=== PATIENT | male | born 1985 | race Caucasian/White ===

== ENCOUNTER 2020-11-23 14:20 | Emergency (ER) | payer BC ==
[2020-11-23] MEDS ORDERED: Diphtheria,Pertussis(Acell),Tetanus Vaccine 0.5 ML Syringe IM ONE (15:08)
[2020-11-23] MEDS ORDERED: Lidocaine 1% with EPINEPHrine 1:100,000 10 ML MDV INJECT ONE (15:08)
--- NOTE | 2020-11-23 16:01 | EDM.PDOC ---
ED HPI GENERAL MEDICAL PROBLEM - General Chief Complaint: Laceration Stated Complaint: LT AND RT LEG LARGE THIGH LACS Time Seen by Provider: 11/23/20 14:49 Source of Information: Reports: Patient, RN Notes Reviewed History Limitations: Reports: No Limitations - History of Present Illness INITIAL COMMENTS - FREE TEXT/NARRATIVE: Patient is a 35-year-old male presenting to the emergency department with complaints of laceration to his left thigh. Reports that he was doing woodwork with a cork grinder when it fell off the table, hitting him in the leg. It also bumped his right ankle and caused abrasion there. Patient is unsure when his last tetanus vaccination was. Left Lower Leg Pain Score (Numeric/FACES): 8 Right Lower Leg Pain Score (Numeric/FACES): 2 - Related Data Allergies Allergy/AdvReac Type Severity Reaction Status Date / Time Dairy Products Allergy Severe Cannot Verified 11/23/20 14:50 Remember eggs Allergy Severe Cannot Uncoded 11/23/20 14:50 Remember Home Meds: Home Meds . [No Known Home Meds] 11/23/20 [History] Past Medical History - Past Health History Medical/Surgical History: Denies Medical/Surgical History Respiratory History: Reports: Asthma - Infectious Disease History Infectious Disease History: Reports: Chicken Pox - Past Surgical History HEENT Surgical History: Reports: Adenoidectomy, Myringotomy w Tube(s) Male Surgical History: Reports: Vasectomy Musculoskeletal Surgical History: Reports: Arthroscopic Knee Social & Family History - Tobacco Use Tobacco Use Status *Q: Current Every Day Tobacco User Years of Tobacco use: 21 Packs/Tins Daily: 1 - Caffeine Use Caffeine Use: Reports: Coffee, Soda, Tea - Recreational Drug Use Recreational Drug Use: No - Living Situation & Occupation Living situation: Reports: , with Family Occupation: Employed ED ROS GENERAL - Review of Systems Review Of Systems: Comprehensive ROS is negative, except as noted in HPI. ED EXAM, SKIN/RASH Exam: See Below Exam Limited By: No Limitations General Appearance: Alert, WD/WN, No Apparent Distress Respiratory/Chest: No Respiratory Distress, Lungs Clear, Normal Breath Sounds, No Accessory Muscle Use, Chest Non-Tender Cardiovascular: Normal Peripheral Pulses, Regular Rate, Rhythm, No Edema, No Gallop, No JVD, No Murmur, No Rub Extremities: Other (13 cm total (9 cm deep/gaping, 4 cm superficial abrasion) laceration to medial aspect of left thigh. No active bleeding.) Neurological: Alert, Oriented, CN II-XII Intact, Normal Cognition, Normal Gait, Normal Reflexes, No Motor/Sensory Deficits Psychiatric: Normal Affect, Normal Mood ED SKIN PROCEDURES - Laceration/Wound Repair Left Medial Thigh Appearance: Subcutaneous Anesthetic Type: Local Local Anesthesia - Lidocaine (Xylocaine): 1% with EPI Local Anesthetic Volume: 5cc Skin Prep: Chlorhexidine (Hibiciens), Providone-Iodine (Betadine), Saline, Sterile Drape Exploration/Debridement/Repair: Wound Explored, In a Bloodless Field, Explored to Base, Minimal Debridement, No Foreign Material Found Closed with: Sutures Lac/Wound length In cm: 13 (9 cm gaping, 4 cm superficial abrasion) Suture Size: 3-0 # of Sutures: 8 Suture Type: Nylon Sterile Dressing Applied: Nurse Tetanus Status Addressed: Yes Complications: No Course - Vital Signs Last Recorded V/S: Last Vital Signs Temp 97.8 F 11/23/20 16:47 Pulse 71 11/23/20 16:47 Resp 14 11/23/20 16:47 BP 124/89 11/23/20 16:47 Pulse Ox 97 11/23/20 16:47 - Orders/Labs/Meds Meds: Medications Discontinued Medications Generic Name Dose Route Start Last Admin Trade Name [place] PRN Reason Stop Dose Admin Diphtheria/Tetanus/Acell Pertussis 0.5 ml 11/23/20 15:08 11/23/20 15:16 Diphtheria,Pertussis(Acell),Tetanus Vaccine 0.5 Ml Syringe IM 11/23/20 15:09 0.5 ml .ONCE ONE Administration Lidocaine/Epinephrine 10 ml 11/23/20 15:08 11/23/20 15:16 Lidocaine 1% With Epinephrine 1:100,000 10 Ml Mdv INJECT 11/23/20 15:09 10 ml ONETIME ONE Administration Departure - Departure Time of Disposition: 16:00 Disposition: Home, Self-Care 01 Condition: Good Clinical Impression: Laceration - Discharge Information *PRESCRIPTION DRUG MONITORING PROGRAM REVIEWED*: No *COPY OF PRESCRIPTION DRUG MONITORING REPORT IN PATIENT GALE: No Instructions: Laceration Care, Adult Referrals: PCP,None [Primary Care Provider] - Forms: ED Department Discharge Additional Instructions: You were seen in the emergency department today for a laceration to your left th igh. The wound was cleansed and closed with 8 sutures. These should stay intact for 7-10 days. After that time they may be removed in the clinic by a nurse. You may call [phone] schedule a nurse visit. Keep the wound clean and dry. Wash with normal soap and water twice daily. Do not submerge the wound in water. Watch for signs of infection including increased redness, swelling, or purulent drainage. If these should occur, you should be seen either in the clinic or in the emergency department as antibiotic treatment may be needed. Return to the ER as needed. Sepsis Event Note (ED) - Evaluation Sepsis Screening Result: No Definite Risk
[2020-11-23 16:49] VITALS: BP 124/89; PULSE 71
== END 2020-11-23 16:21 | disposition home or self-care (01) ==
LOC: JD.ED 14:20
DX: S71.112A Laceration without foreign body, left thigh, initial encounter (principal); Z91.012 Allergy to eggs; Z91.011 Allergy to milk products; Z72.0 Tobacco use; Z23 Encounter for immunization; W20.8XXA Other cause of strike by thrown, projected or falling object, initial encounter; Y99.0 Civilian activity done for income or pay
CPT/HCPCS: 12005; 90471; 90715; 99282-25; 99283

== ENCOUNTER 2020-12-30 11:33 | Emergency (ER) | payer BC ==
[2020-12-30 11:41] VITALS: BP 146/95; PULSE 77
--- NOTE | 2020-12-30 12:29 | EDM.PDOC ---
ED HPI GENERAL MEDICAL PROBLEM - General Chief Complaint: Chest Pain Stated Complaint: CHEST PAIN Time Seen by Provider: 12/30/20 12:03 Source of Information: Reports: Patient, RN Notes Reviewed History Limitations: Reports: No Limitations - History of Present Illness INITIAL COMMENTS - FREE TEXT/NARRATIVE: Patient is a 35-year-old male presenting to the emergency department with complaints of intermittent transient chest pain with radiation to his neck, left arm, and legs. Symptoms have been occurring intermittently for the last 2 weeks. Reports they happen about every 2 days. There is no correlation with exertion. 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 Reports that he gets a sharp, stabbing pain in his chest also numbness and tingling in his arms and legs. Reports he can feel his heartbeat in his neck. Symptoms are not present at this time. States his chest feels slightly tight but he is not having any pain. Reports that he has some tenderness on the right side of his chest and bilateral posterior ribs. Denies any shortness of breath or diaphoresis associated with these episodes. Denies any chronic medical conditions. He is currently trying to quit smoking. He is down to 2 or 3 cigarettes a day from 2 packs/day. When he was 18, he had something similar to this and states that he was told it was anxiety. Left Chest Pain Score (Numeric/FACES): 8 - Related Data Allergies Allergy/AdvReac Type Severity Reaction Status Date / Time No Known Allergies Allergy Verified 12/30/20 11:41 Home Meds: Home Meds . [No Known Home Meds] 11/23/20 [History] Past Medical History - Past Health History Medical/Surgical History: Denies Medical/Surgical History Respiratory History: Reports: Asthma - Infectious Disease History Infectious Disease History: Reports: Chicken Pox - Past Surgical History HEENT Surgical History: Reports: Adenoidectomy, Myringotomy w Tube(s) Male Surgical History: Reports: Vasectomy Musculoskeletal Surgical History: Reports: Arthroscopic Knee, Shoulder Surgery Social & Family History - Tobacco Use Tobacco Use Status *Q: Current Every Day Tobacco User Years of Tobacco use: 21 Packs/Tins Daily: 0.2 - Caffeine Use Caffeine Use: Reports: Coffee - Recreational Drug Use Recreational Drug Use: No - Living Situation & Occupation Living situation: Reports: , with Family Occupation: Employed ED ROS GENERAL - Review of Systems Review Of Systems: Comprehensive ROS is negative, except as noted in HPI. ED EXAM, GENERAL - Physical Exam Exam: See Below Exam Limited By: No Limitations General Appearance: Alert, WD/WN, No Apparent Distress Respiratory/Chest: No Respiratory Distress, Lungs Clear, Normal Breath Sounds, No Accessory Muscle Use, Other Cardiovascular: Normal Peripheral Pulses, Regular Rate, Rhythm, No Edema, No Gallop, No JVD, No Murmur, No Rub GI/Abdominal: Normal Bowel Sounds, Soft, Non-Tender, No Organomegaly, No Distention, No Abnormal Bruit, No Mass Neurological: Alert, Oriented, CN II-XII Intact, Normal Cognition, Normal Gait, Normal Reflexes, No Motor/Sensory Deficits Psychiatric: Normal Affect, Normal Mood Skin Exam: Warm, Dry, Intact, Normal Color, No Rash #1 Interpretation EKG Date: 12/30/20 Time: 11:35 Rhythm: NSR Rate (Beats/Min): 75 [place]: Normal P-Wave: Present QRS: Normal ST-T: Normal QT: Normal Course - Vital Signs Last Recorded V/S: Last Vital Signs Temp 98.1 F 12/30/20 11:38 Pulse 77 12/30/20 11:38 Resp 18 12/30/20 11:38 BP 146/95 H 12/30/20 11:38 Pulse Ox 99 12/30/20 11:38 - Orders/Labs/Meds Labs: Laboratory Tests 12/30/20 12/30/20 12/30/20 Range/Units 12:46 12:46 12:46 WBC (4.23-9.07) K/mm3 RBC (4.63-6.08) M/mm3 Hgb (13.7-17.5) gm/dl Hct (40.1-51.0) % MCV (79.0-92.2) fl MCH (25.7-32.2) pg MCHC (32.2-35.5) g/dl RDW Std Deviation (35.1-43.9) fL Plt Count (163-337) K/mm3 MPV (9.4-12.3) fl Neut % (Auto) (34.0-67.9) % Lymph % (Auto) (21.8-53.1) % [place] % (Auto) (5.3-12.2) % Eos % (Auto) (0.8-7.0) Baso % (Auto) (0.1-1.2) % Neut # (Auto) (1.78-5.38) K/mm3 Lymph # (Auto) (1.32-3.57) K/mm3 [place] # (Auto) (0.30-0.82) K/mm3 Eos # (Auto) (0.04-0.54) K/mm3 Baso # (Auto) (0.01-0.08) K/mm3 PT 10.3 (9.7-12.0) SECONDS INR 0.93 APTT 28.8 (21.7-31.4) SECONDS D-Dimer, Quantitative < 0.19 L (0.19-0.50) mg/L Sodium 138 (136-145) mEq/L Potassium 3.9 (3.5-5.1) mEq/L Chloride 104 (98-107) mEq/L Carbon Dioxide 26 (21-32) mEq/L Anion Gap 11.9 (5-15) BUN 12 (7-18) mg/dL Creatinine 1.0 (0.7-1.3) mg/dL Est Cr Clr Drug Dosing 106.46 mL/min Estimated GFR (MDRD) > 60 (>60) mL/min BUN/Creatinine Ratio 12.0 L (14-18) Glucose 96 (70-99) mg/dL Calcium 9.5 (8.5-10.1) mg/dL Magnesium 2.0 (1.8-2.4) mg/dL Total Bilirubin 0.4 (0.2-1.0) mg/dL AST 29 (15-37) U/L ALT 63 (16-63) U/L Alkaline Phosphatase 72 (46-116) U/L Troponin I < 0.017 (0.00-0.056) ng/mL NT-Pro-B Natriuret Pep (0-125) pg/mL Total Protein 7.5 (6.4-8.2) g/dl Albumin 4.0 (3.4-5.0) g/dl Globulin 3.5 gm/dL Albumin/Globulin Ratio 1.1 (1-2) 12/30/20 12/30/20 Range/Units 12:46 12:46 WBC 8.55 (4.23-9.07) K/mm3 RBC 5.63 (4.63-6.08) M/mm3 Hgb 16.1 (13.7-17.5) gm/dl Hct 46.0 (40.1-51.0) % MCV 81.7 (79.0-92.2) fl MCH 28.6 (25.7-32.2) pg MCHC 35.0 (32.2-35.5) g/dl RDW Std Deviation 38.5 (35.1-43.9) fL Plt Count 260 (163-337) K/mm3 MPV 9.5 (9.4-12.3) fl Neut % (Auto) 63.6 (34.0-67.9) % Lymph % (Auto) 25.8 (21.8-53.1) % [place] % (Auto) 6.3 (5.3-12.2) % Eos % (Auto) 3.5 (0.8-7.0) Baso % (Auto) 0.7 (0.1-1.2) % Neut # (Auto) 5.43 H (1.78-5.38) K/mm3 Lymph # (Auto) 2.21 (1.32-3.57) K/mm3 [place] # (Auto) 0.54 (0.30-0.82) K/mm3 Eos # (Auto) 0.30 (0.04-0.54) K/mm3 Baso # (Auto) 0.06 (0.01-0.08) K/mm3 PT (9.7-12.0) SECONDS INR APTT (21.7-31.4) SECONDS D-Dimer, Quantitative (0.19-0.50) mg/L Sodium (136-145) mEq/L Potassium (3.5-5.1) mEq/L Chloride (98-107) mEq/L Carbon Dioxide (21-32) mEq/L Anion Gap (5-15) BUN (7-18) mg/dL Creatinine (0.7-1.3) mg/dL Est Cr Clr Drug Dosing mL/min Estimated GFR (MDRD) (>60) mL/min BUN/Creatinine Ratio (14-18) Glucose (70-99) mg/dL Calcium (8.5-10.1) mg/dL Magnesium (1.8-2.4) mg/dL Total Bilirubin (0.2-1.0) mg/dL AST (15-37) U/L ALT (16-63) U/L Alkaline Phosphatase (46-116) U/L Troponin I (0.00-0.056) ng/mL NT-Pro-B Natriuret Pep 58 (0-125) pg/mL Total Protein (6.4-8.2) g/dl Albumin (3.4-5.0) g/dl Globulin gm/dL Albumin/Globulin Ratio (1-2) - Re-Assessments/Exams Free Text/Narrative Re-Assessment/Exam: Patient is a 35-year-old male presenting to the emergency department with complaints of a 2-week history of intermittent chest pain. Symptoms are not present at this time, however he states his chest feels somewhat tight. On exam, he does have tenderness to palpation throughout the chest wall anterior and posteriorly. Exam is otherwise unremarkable. I have ordered blood work, chest x-ray, EKG. 12/30/20 13:55 Work-up is unremarkable. Chest x-ray is normal. EKG shows normal sinus rhythm. Troponin and D-dimer are undetectably low. Results discussed with patient. I suspect his symptoms related to muscle spasms of the chest wall. Offered Flexeril but he declined. I did recommend that he establish care with a provider in the clinic for ongoing monitoring and for possible outpatient stress test if the symptoms continue. He verbalized understanding of this. He did not want me to send a referral to a clinic provider. Discussed return precautions. Discharge instructions as documented. Departure - Departure Time of Disposition: 13:56 Disposition: Home, Self-Care 01 Condition: Good Clinical Impression: Non-cardiac chest pain Instructions: Nonspecific Chest Pain, Adult Referrals: PCP,None [Primary Care Provider] - Forms: ED Department Discharge Additional Instructions: You were seen in the emergency department today for intermittent episodes of chest pain for the last 2 weeks. Work-up included blood work, EKG of your heart, and chest x-ray. Results of your work-up were found to be normal. You are not having a heart attack and you do not have a blood clot in your lungs. As we discussed, it is likely that your symptoms are result of muscle spasms of your chest wall. I would recommend that you establish care in the clinic with a provider. Should the symptoms continue, outpatient stress test may be beneficial. Return to ER for any new or worsening symptoms. Sepsis Event Note (ED) - Evaluation Sepsis Screening Result: No Definite Risk - Focused Exam Vital Signs: Vital Signs Temp Pulse Resp BP Pulse Ox 12/30/20 11:38 98.1 F 77 18 146/95 H 99
--- NOTE | 2020-12-30 12:45 | CR ---
Chest: PA and lateral views of the chest were obtained. Comparison: Prior chest x-ray 09/26/13. Heart size and mediastinum are within normal limits. Lungs are clear with no acute parenchymal change. No acute osseous abnormality is appreciated. Impression: 1. Nothing acute is seen on 2 view chest x-ray. Diagnostic code #1
== END 2020-12-30 14:35 | disposition home or self-care (01) ==
LOC: JD.ED 11:33
DX: R07.89 Other chest pain (principal); J45.909 Unspecified asthma, uncomplicated; Z72.0 Tobacco use
CPT/HCPCS: 36415; 71046; 71046-26; 80053; 83735; 83880; 84484; 85025; 85379; 85610; 85730; 93005; 93010; 99283; 99285-25

== ENCOUNTER 2021-04-19 13:26 | Emergency (ER) | payer BC ==
--- NOTE | 2021-04-19 13:46 | EDM.PDOC ---
ED HPI GENERAL MEDICAL PROBLEM - General Chief Complaint: Neuro Symptoms/Deficits Stated Complaint: NUMBNESS TO ONE SIDE FACE/ARM Time Seen by Provider: 04/19/21 13:31 Source of Information: Reports: Patient - History of Present Illness INITIAL COMMENTS - FREE TEXT/NARRATIVE: 35-year-old male brought in by private car concerns of possibly having a stroke. Last known normal: Noon today. Patient awoke around 7:00 this morning everything was fine then he sat down for his first meal the day and he noticed some slight difficulty with weakness on his left side including his face. Upon arrival here he is got significantly noticeable weakness in his left lower leg his left upper extremity is held in a flexion almost contracture like. I cannot extend it with passive attempts and the patient cannot extended on his own. Patient denies any drugs or alcohol. He is not taking any routine medications. He has never had symptoms like this in the past. - Related Data Allergies Allergy/AdvReac Type Severity Reaction Status Date / Time Dairy Products Allergy Abdominal Verified 04/19/21 13:38 Pain Home Meds: Home Meds . [No Known Home Meds] 11/23/20 [History] Past Medical History - Past Health History Medical/Surgical History: Denies Medical/Surgical History Respiratory History: Reports: Asthma - Infectious Disease History Infectious Disease History: Reports: Chicken Pox - Past Surgical History HEENT Surgical History: Reports: Adenoidectomy, Myringotomy w Tube(s) Male Surgical History: Reports: Vasectomy Musculoskeletal Surgical History: Reports: Arthroscopic Knee, Shoulder Surgery Social & Family History - Caffeine Use Caffeine Use: Reports: Coffee - Living Situation & Occupation Living situation: Reports: , with Family Occupation: Employed ED ROS GENERAL - Review of Systems Review Of Systems: See Below Constitutional: Reports: No Symptoms HEENT: Reports: No Symptoms Respiratory: Reports: No Symptoms Cardiovascular: Reports: Chest Pain (He has had some left lower chest pain for the last couple of days). Denies: No Symptoms Endocrine: Reports: No Symptoms GI/Abdominal: Reports: No Symptoms Musculoskeletal: Reports: No Symptoms Skin: Reports: No Symptoms Neurological: Reports: Difficulty Walking, Weakness, Change in Speech (Patient's father has a hard time describing this he says at times it was like he just was not there.). Denies: Confusion, Dizziness, Seizure Psychiatric: Reports: No Symptoms Hematologic/Lymphatic: Reports: No Symptoms Immunologic: Reports: No Symptoms ED EXAM, GENERAL - Physical Exam Exam: See Below Exam Limited By: No Limitations General Appearance: Alert, WD/WN, No Apparent Distress, Other Ears: Normal External Exam, Normal Canal, Hearing Grossly Normal, Normal TMs Ear Exam: Bilateral Ear: Auricle Normal, Canal Normal, TM normal Nose: Normal Inspection, Normal Mucosa, No Blood Throat/Mouth: Normal Inspection, Normal Lips, Normal Teeth, Normal Gums, Normal Oropharynx, Normal Voice, No Airway Compromise Head: Atraumatic, Normocephalic Neck: Normal Inspection, Supple, Non-Tender, Full Range of Motion Respiratory/Chest: No Respiratory Distress, Lungs Clear, Normal Breath Sounds, No Accessory Muscle Use, Chest Non-Tender Cardiovascular: Normal Peripheral Pulses, Regular Rate, Rhythm, No Edema, No Gallop, No JVD, No Murmur, No Rub GI/Abdominal: Normal Bowel Sounds, Soft, Non-Tender, No Organomegaly, No Distention, No Abnormal Bruit, No Mass (Male) Exam: No Hernia, Normal Inspection, Normal Prostate, Circumcised Rectal (Males) Exam: Normal Exam, Normal Rectal Tone, Prostate Normal Back Exam: Normal Inspection, Full Range of Motion, NT Extremities: Normal Inspection, Normal Range of Motion, Non-Tender, Normal Capillary Refill, No Pedal Edema Neurological: Alert, Oriented, CN II-XII Intact, Normal Cognition, Normal Gait, Normal Reflexes, Sensory/Motor Deficit (Weakness in the left lower extremity and this is noticed in the left face as well left arm excellence specialist strength is diminished but he will not extend his elbow and it is held in flexion position even against resistance) Psychiatric: Normal Affect, Normal Mood Skin Exam: Warm, Dry, Intact, Normal Color, No Rash Lymphatic: No Adenopathy #1 Interpretation EKG Date: 04/19/21 Rhythm: NSR Rate (Beats/Min): 76 Ace: Normal P-Wave: Present QRS: Normal ST-T: Normal QT: Normal Comparison: Change From Previous EKG (Isoelectric T waves noted in V2 on prior study 12/30/2020 has resolved) EKG Interpretation Comments: Normal EKG Course - Vital Signs Last Recorded V/S: Last Vital Signs Temp 36.2 C 04/19/21 16:43 Pulse 68 04/19/21 16:43 Resp 14 04/19/21 16:43 BP 129/75 04/19/21 16:43 Pulse Ox 99 04/19/21 16:43 - Orders/Labs/Meds Orders: Active Orders 24 hr Category Date Time Status Head wo Cont [CT] Stat Exams 04/19/21 13:44 Taken Labs: Laboratory Tests 04/19/21 04/19/21 04/19/21 Range/Units 13:31 14:00 14:00 WBC (4.23-9.07) K/mm3 RBC (4.63-6.08) M/mm3 Hgb (13.7-17.5) gm/dl Hct (40.1-51.0) % MCV (79.0-92.2) fl MCH (25.7-32.2) pg MCHC (32.2-35.5) g/dl RDW Std Deviation (35.1-43.9) fL Plt Count (163-337) K/mm3 MPV (9.4-12.3) fl Neut % (Auto) (34.0-67.9) % Lymph % (Auto) (21.8-53.1) % Evangeline % (Auto) (5.3-12.2) % Eos % (Auto) (0.8-7.0) Baso % (Auto) (0.1-1.2) % Neut # (Auto) (1.78-5.38) K/mm3 Lymph # (Auto) (1.32-3.57) K/mm3 Evangeline # (Auto) (0.30-0.82) K/mm3 Eos # (Auto) (0.04-0.54) K/mm3 Baso # (Auto) (0.01-0.08) K/mm3 PT 10.0 (9.7-12.0) SECONDS INR < 0.93 APTT (21.7-31.4) SECONDS Sodium 142 (136-145) mEq/L Potassium 4.4 (3.5-5.1) mEq/L Chloride 104 (98-107) mEq/L Carbon Dioxide 31 (21-32) mEq/L Anion Gap 11.4 (5-15) BUN 16 (7-18) mg/dL Creatinine 1.2 (0.7-1.3) mg/dL Est Cr Clr Drug Dosing 88.72 mL/min Estimated GFR (MDRD) > 60 (>60) mL/min BUN/Creatinine Ratio 13.3 L (14-18) Glucose 102 H (70-99) mg/dL POC Glucose 100 H (70-99) mg/dL Calcium 8.6 (8.5-10.1) mg/dL Magnesium (1.8-2.4) mg/dL Total Bilirubin 0.3 (0.2-1.0) mg/dL AST 39 H (15-37) U/L ALT 91 H (16-63) U/L Alkaline Phosphatase 77 (46-116) U/L Troponin I < 0.017 (0.00-0.056) ng/mL Total Protein 7.3 (6.4-8.2) g/dl Albumin 3.6 (3.4-5.0) g/dl Globulin 3.7 gm/dL Albumin/Globulin Ratio 1.0 (1-2) Influenza Type A RNA (NEGATIVE) Influenza Type B RNA (NEGATIVE) SARS-CoV-2 RNA (QUINCY) (NEGATIVE) 04/19/21 04/19/21 04/19/21 Range/Units 14:00 14:00 14:00 WBC 4.91 (4.23-9.07) K/mm3 RBC 5.50 (4.63-6.08) M/mm3 Hgb 15.6 (13.7-17.5) gm/dl Hct 45.2 (40.1-51.0) % MCV 82.2 (79.0-92.2) fl MCH 28.4 (25.7-32.2) pg MCHC 34.5 (32.2-35.5) g/dl RDW Std Deviation 39.1 (35.1-43.9) fL Plt Count 181 D (163-337) K/mm3 MPV 10.0 (9.4-12.3) fl Neut % (Auto) 51.5 (34.0-67.9) % Lymph % (Auto) 33.4 (21.8-53.1) % Evangeline % (Auto) 9.2 (5.3-12.2) % Eos % (Auto) 4.9 (0.8-7.0) Baso % (Auto) 1.0 (0.1-1.2) % Neut # (Auto) 2.53 (1.78-5.38) K/mm3 Lymph # (Auto) 1.64 (1.32-3.57) K/mm3 Evangeline # (Auto) 0.45 (0.30-0.82) K/mm3 Eos # (Auto) 0.24 (0.04-0.54) K/mm3 Baso # (Auto) 0.05 (0.01-0.08) K/mm3 PT (9.7-12.0) SECONDS INR APTT 28.5 (21.7-31.4) SECONDS Sodium (136-145) mEq/L Potassium (3.5-5.1) mEq/L Chloride (98-107) mEq/L Carbon Dioxide (21-32) mEq/L Anion Gap (5-15) BUN (7-18) mg/dL Creatinine (0.7-1.3) mg/dL Est Cr Clr Drug Dosing mL/min Estimated GFR (MDRD) (>60) mL/min BUN/Creatinine Ratio (14-18) Glucose (70-99) mg/dL POC Glucose (70-99) mg/dL Calcium (8.5-10.1) mg/dL Magnesium 1.9 (1.8-2.4) mg/dL Total Bilirubin (0.2-1.0) mg/dL AST (15-37) U/L ALT (16-63) U/L Alkaline Phosphatase (46-116) U/L Troponin I (0.00-0.056) ng/mL Total Protein (6.4-8.2) g/dl Albumin (3.4-5.0) g/dl Globulin gm/dL Albumin/Globulin Ratio (1-2) Influenza Type A RNA (NEGATIVE) Influenza Type B RNA (NEGATIVE) SARS-CoV-2 RNA (QUINCY) (NEGATIVE) 04/19/21 Range/Units 14:15 WBC (4.23-9.07) K/mm3 RBC (4.63-6.08) M/mm3 Hgb (13.7-17.5) gm/dl Hct (40.1-51.0) % MCV (79.0-92.2) fl MCH (25.7-32.2) pg MCHC (32.2-35.5) g/dl RDW Std Deviation (35.1-43.9) fL Plt Count (163-337) K/mm3 MPV (9.4-12.3) fl Neut % (Auto) (34.0-67.9) % Lymph % (Auto) (21.8-53.1) % Evangeline % (Auto) (5.3-12.2) % Eos % (Auto) (0.8-7.0) Baso % (Auto) (0.1-1.2) % Neut # (Auto) (1.78-5.38) K/mm3 Lymph # (Auto) (1.32-3.57) K/mm3 Evangeline # (Auto) (0.30-0.82) K/mm3 Eos # (Auto) (0.04-0.54) K/mm3 Baso # (Auto) (0.01-0.08) K/mm3 PT (9.7-12.0) SECONDS INR APTT (21.7-31.4) SECONDS Sodium (136-145) mEq/L Potassium (3.5-5.1) mEq/L Chloride (98-107) mEq/L Carbon Dioxide (21-32) mEq/L Anion Gap (5-15) BUN (7-18) mg/dL Creatinine (0.7-1.3) mg/dL Est Cr Clr Drug Dosing mL/min Estimated GFR (MDRD) (>60) mL/min BUN/Creatinine Ratio (14-18) Glucose (70-99) mg/dL POC Glucose (70-99) mg/dL Calcium (8.5-10.1) mg/dL Magnesium (1.8-2.4) mg/dL Total Bilirubin (0.2-1.0) mg/dL AST (15-37) U/L ALT (16-63) U/L Alkaline Phosphatase (46-116) U/L Troponin I (0.00-0.056) ng/mL Total Protein (6.4-8.2) g/dl Albumin (3.4-5.0) g/dl Globulin gm/dL Albumin/Globulin Ratio (1-2) Influenza Type A RNA Positive H (NEGATIVE) Influenza Type B RNA Negative (NEGATIVE) SARS-CoV-2 RNA (QUINCY) Negative (NEGATIVE) Meds: Medications Discontinued Medications Generic Name Dose Route Start Last Admin Trade Name Freq PRN Reason Stop Dose Admin Alteplase, Recombinant 7.1 mg 04/19/21 15:29 04/19/21 15:33 Alteplase 100 Mg Vial 0.09 mg/kg (7.1 mg) 04/19/21 15:30 7.1 mg IV Administration BOLUS STA Levetiracetam 2,000 mg/ Sodium 120 mls @ 400 mls/hr 04/19/21 14:27 04/19/21 16:39 Chloride IV 04/19/21 14:41 Not Given ONETIME ONE Alteplase, Recombinant 63.85 0 mls @ 0 mls/hr 04/19/21 15:30 04/19/21 15:40 mg/ Alteplase, Recombinant IV 04/19/21 15:31 63.8 mls/hr ASDIRECTED STA Administration Lorazepam 2 mg 04/19/21 14:27 04/19/21 14:50 Lorazepam 2 Mg/Ml Sdv IVPUSH 04/19/21 14:28 2 mg ONETIME ONE Administration - Re-Assessments/Exams Free Text/Narrative Re-Assessment/Exam: 04/19/21 14:36 T is unremarkable for acute stroke no hemorrhage mass-effect or midline shift left he does look like he has an acute sinusitis going on. Case was reviewed with neurology stroke score 3. Dr. Castillo the on-call neurologist at [facility] recommends patient should come over for further evaluation. 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 Patient will be sent to the [facility] for further evaluation. Dr. Garrido excepting in the ER. Patient will be treated with 2 mg of Ativan and 2 g of Keppra 04/19/21 14:53 Approximately 5 minutes ago was contacted by the neurologist at [facility] who thought given his age thrombolytics would not be an absolute contraindication and by the time he got there he would be out of the window for these and thought giving Ativan and if no improvement attempting thrombolytics. But he was leaning more favorably towards the thrombolytics. I was just recently contacted by the ER at [facility] who says if he gets thrombolytics they will not be able to accept him because they do not have an ICU bed. 04/19/21 15:00 Patient is getting significant improvement in his left elbow he is able to fully extend it but this takes him a while to do. Says he feels like he has a charley horse. I called to give neurology an update and he has been discussing it with colleagues of his who discuss some spasticity as a presenting complaint with ANTON strokes. And recommends giving thrombolytics. Had a long discussion with the patient and his father and they have no objection to trying thrombolytics at this point 04/19/21 16:03 I am working on finding placement for this patient as [facility] in [place] no longer take him as he is received thrombolytics the improvement he demonstrated with his arm flexion and to a much lesser degree 8 ability to move his left leg a little bit better is maintained at this point its not any better but certainly not any worse. 04/19/21 16:13 I am still waiting discussed the situation with [facility] call in [place] I have been on the phone with them for 23 minutes now. 04/19/21 16:23 [facility] call in [place] is trying to get in contact with the stroke neurologist at this time. 04/19/21 16:37 Dr. Calzada, stroke neurologist at [facility] agrees the patient should be sent over there. We discussed the whole clinical presentation and treatment thus far. Departure - Departure Time of Disposition: 14:39 Disposition: DC/Tfer to Acute Hospital 02 Clinical Impression: Neurological deficit present, Focal seizure - Discharge Information Referrals: PCP,None [Primary Care Provider] - Forms: ED Department Discharge Sepsis Event Note (ED) - Evaluation Sepsis Screening Result: No Definite Risk - Focused Exam Vital Signs: Vital Signs Temp Pulse Resp BP Pulse Ox 04/19/21 16:43 36.2 C 68 14 129/75 99 04/19/21 13:32 35.8 C L 89 20 148/101 H 100 - My Orders Last 24 Hours: My Active Orders 04/19/21 13:44 Head wo Cont [CT] Stat - Assessment/Plan Last 24 Hours: My Active Orders 04/19/21 13:44 Head wo Cont [CT] Stat
[2021-04-19] MEDS ORDERED: LORazepam 2 MG/ML SDV IVPUSH ONE (14:27)
[2021-04-19] MEDS ORDERED: levETIRAcetam 2,000 MG in Sodium Chloride 0.9% 100 ML IV ONE (14:27)
[2021-04-19 15:01] LABS: CORONAVIRUS COVID-19 NAA NEGATIVE (NEGATIVE)
[2021-04-19] MEDS ORDERED: INFUSION IV STA (15:30)
[2021-04-19] MEDS ORDERED: ALTEPLASE IV STA (15:30)
[2021-04-19 18:54] VITALS: BP 124/87; PULSE 78
--- NOTE | 2021-04-21 14:03 | CT ---
EXAM: CT HEAD W/O LOCATION: [facility] DATE/TIME: 04/19/2021 1:42 PM INDICATION: Numbness/parathesia; left; patient history: stroke symptoms, weakness on left side of body COMPARISON: None. TECHNIQUE: Routine CT Head without IV contrast. Multiplanar reformats. Dose reduction techniques were used. FINDINGS: INTRACRANIAL CONTENTS: No intracranial hemorrhage, extraaxial collection, or mass effect. No CT evidence of acute infarct. Normal parenchymal attenuation. Normal ventricles and sulci. VISUALIZED ORBITS/SINUSES/MASTOIDS: No intraorbital abnormality. Mild to moderate mucosal thickening scattered about the paranasal sinuses. Complete/near complete opacification of the left mastoid air cells. No apparent mass in the posterior nasopharynx or skull base. BONES/SOFT TISSUES: No acute abnormality. IMPRESSION: 1. No acute intracranial process. 2. Left mastoid effusion. 3. Scattered paranasal sinus mucosal thickening. SIGNED BY: Sylevster Andujar MD 04/21/2021 2:10 PM KELLIE
== END 2021-04-19 18:49 ==
LOC: JD.ED 13:26
DX: R56.9 Unspecified convulsions (principal); R29.818 Other symptoms and signs involving the nervous system; Z91.011 Allergy to milk products; Z20.822 Contact with and (suspected) exposure to COVID-19
CPT/HCPCS: 36415; 37195; 70450; 80053; 82947; 83735; 84484; 85025; 85610; 85730; 87502; 87635; 93005; 96374; 99285; J2060; J2997; U0002

== ENCOUNTER 2021-08-13 05:41 | Emergency (ER) | payer BC ==
[2021-08-13] MEDS ORDERED: Ondansetron 4 MG/2 ML SDV IVPUSH ONE (05:58)
[2021-08-13] MEDS ORDERED: Famotidine 20 MG/2 ML SDV IVPUSH ONE (05:59)
[2021-08-13] MEDS ORDERED: Alum Hydrox/Mag Hydrox/Simeth 30 ML, Lidocaine 2% 15 ML PO ONE ×2 (05:59)
[2021-08-13 07:35] VITALS: BP 112/56; PULSE 66
== END 2021-08-13 07:35 | disposition home or self-care (01) ==
LOC: JD.ED 05:41
DX: R10.13 Epigastric pain (principal); R11.10 Vomiting, unspecified; Z91.011 Allergy to milk products; Z79.899 Other long term (current) drug therapy; Z72.0 Tobacco use
CPT/HCPCS: 36415; 80053; 83690; 85025; 85610; 96374; 96375; 99284; A9270; J2405; J3490

== ENCOUNTER 2021-08-13 23:51 | Emergency (ER) | payer BC ==
[2021-08-14 00:05] VITALS: BP 134/99; PULSE 83
[2021-08-14] MEDS ORDERED: Lactated Ringers 1,000 ML IV ONE (00:20)
[2021-08-14] MEDS ORDERED: Morphine 4 MG/ML Syringe IVPUSH ONE (00:54)
[2021-08-14] MEDS ORDERED: Ondansetron 4 MG/2 ML SDV IVPUSH ONE (00:54)
[2021-08-14] MEDS ORDERED: Iopamidol 612 MG/ML 50 ML SDV IVPUSH ONE (01:15)
[2021-08-14] MEDS ORDERED: Iopamidol 612 MG/ML 100 ML Bottle IVPUSH ONE (01:15)
[2021-08-14] MEDS ORDERED: Sodium Chloride 0.9% 10 ML SDV FLUSH ONE (01:15)
[2021-08-14] MEDS ORDERED: Alum Hydrox/Mag Hydrox/Simeth 30 ML, Lidocaine 2% 15 ML PO ONE ×2 (01:55)
[2021-08-14] MEDS ORDERED: Loperamide 2 MG Cap PO ONE (02:42)
== END 2021-08-14 03:09 | disposition home or self-care (01) ==
LOC: JD.ED 23:51
DX: R10.9 Unspecified abdominal pain (principal); R11.10 Vomiting, unspecified; R19.7 Diarrhea, unspecified; Z91.011 Allergy to milk products; Z72.0 Tobacco use
CPT/HCPCS: 36415; 74177; 80053; 83690; 85025; 96374; 96375; 99284; A9270; J2270; J2405; J3490; J7120; Q9967

== ENCOUNTER 2021-09-10 19:27 | Emergency (ER) | payer BC ==
[2021-09-10 20:03] VITALS: BP 136/87; PULSE 75
[2021-09-10] MEDS ORDERED: Sodium Chloride 0.9% 10 ML Syringe FLUSH PRN (20:07)
[2021-09-10] MEDS ORDERED: LORazepam 2 MG/ML SDV IVPUSH ONE (20:11)
== END 2021-09-10 21:36 | disposition home or self-care (01) ==
LOC: JD.ED 19:27
DX: R20.2 Paresthesia of skin (principal); Z87.891 Personal history of nicotine dependence; Z79.899 Other long term (current) drug therapy
CPT/HCPCS: 36415; 70450; 70450-26; 80053; 83735; 83880; 84484; 85025; 85610; 85730; 93005; 96374; 99284-25; J2060; J3490

== ENCOUNTER 2021-10-31 01:39 | Emergency (ER) | payer BC ==
[2021-10-31 01:55] VITALS: BP 148/95; PULSE 82
== END 2021-10-31 05:07 | disposition home or self-care (01) ==
LOC: JD.ED 01:39
DX: R07.0 Pain in throat (principal); R06.00 Dyspnea, unspecified; F17.210 Nicotine dependence, cigarettes, uncomplicated; Z28.310 Unvaccinated for COVID-19; Z91.012 Allergy to eggs; Z91.011 Allergy to milk products; Z20.822 Contact with and (suspected) exposure to COVID-19
CPT/HCPCS: 36415; 71046; 71046-26; 80053; 83605; 83880; 84484; 85025; 85379; 93005; 99285; U0002

== ENCOUNTER 2021-12-06 23:21 | Emergency (ER) | payer BC ==
[2021-12-06 23:41] VITALS: BP 131/88; PULSE 72
== END 2021-12-07 00:43 | disposition home or self-care (01) ==
LOC: JD.ED 23:21
DX: H66.002 Acute suppurative otitis media without spontaneous rupture of ear drum, left ear (principal); J45.909 Unspecified asthma, uncomplicated; F17.210 Nicotine dependence, cigarettes, uncomplicated; Z91.013 Allergy to seafood; Z91.012 Allergy to eggs
CPT/HCPCS: 99282

== ENCOUNTER 2021-12-25 11:21 | Emergency (ER) | payer BC ==
[2021-12-25] MEDS ORDERED: Sodium Chloride 0.9% 10 ML Syringe FLUSH PRN (11:44)
[2021-12-25 13:59] VITALS: BP 104/64; PULSE 76
== END 2021-12-25 13:59 | disposition home or self-care (01) ==
LOC: JD.ED 11:21 → MERGE 11:21 → JD.ED 13:59
DX: R10.31 Right lower quadrant pain (principal); M54.50 Low back pain, unspecified; F17.210 Nicotine dependence, cigarettes, uncomplicated
CPT/HCPCS: 36415; 74176; 74176-26; 80053; 83690; 85025; 99284

== ENCOUNTER 2021-12-31 01:56 | Emergency (ER) | payer BC ==
[2021-12-31 02:08] VITALS: BP 130/88; PULSE 69
[2021-12-31] MEDS ORDERED: Sodium Chloride 0.9% 1,000 ML IV SCH (03:30)
[2021-12-31] MEDS ORDERED: Sodium Chloride 0.9% 10 ML Syringe FLUSH ONE (03:38)
[2021-12-31] MEDS ORDERED: Iopamidol 612 MG/ML 100 ML Bottle IVPUSH ONE (03:38)
== END 2021-12-31 06:55 | disposition home or self-care (01) ==
LOC: JD.ED 01:56
DX: R10.31 Right lower quadrant pain (principal); J45.909 Unspecified asthma, uncomplicated; F17.210 Nicotine dependence, cigarettes, uncomplicated; Z91.011 Allergy to milk products; Z91.012 Allergy to eggs
CPT/HCPCS: 36415; 74177; 76705; 80053; 81001; 83690; 83735; 85007; 85027; 96360; 96361; 99284; J3490; J7030; Q9967

== ENCOUNTER 2023-07-22 08:20 | Day surgery (SDC) | payer BC ==
[~2023-07-22 08:20] MED LIST: Sodium Chloride 0.9% 10 ML Syringe FLUSH PRN; Sodium Chloride 0.9% 10 ML Syringe FLUSH SCH
[2023-07-22] MEDS: Lactated Ringers 1,000 ML IV SCH (08:40)
[2023-07-22] MEDS ORDERED: Midazolam 1 MG/ML 2 ML SDV ONE (10:54)
[2023-07-22] MEDS ORDERED: Propofol 200 MG/20 ML SDV ONE (10:54)
[2023-07-22] MEDS ORDERED: fentaNYL 100 MCG/2 ML SDV ONE ×2 (10:54→11:42)
[2023-07-22] MEDS ORDERED: ceFAZolin 2 GM Vial ONE (10:56)
[2023-07-22] MEDS ORDERED: Ketorolac 30 MG/ML SDV ONE (11:32)
[2023-07-22] MEDS ORDERED: Ondansetron 4 MG/2 ML SDV ONE (11:32)
[2023-07-22] MEDS: Bupivacaine 0.25% 10 ML SDV ONE (11:59)
[2023-07-22] MEDS ORDERED: HYDROmorphone 0.5 MG/0.5 ML Syringe ONE ×2 (12:09→12:11)
[2023-07-22 13:57] VITALS: BP 156/86; PULSE 72
== END 2023-07-22 14:15 | disposition home or self-care (01) ==
LOC: JD.SDS 08:20
PROVIDERS: ATTEND Orthopaedic Surgery
DX: G56.22 Lesion of ulnar nerve, left upper limb (principal); J45.909 Unspecified asthma, uncomplicated; K21.9 Gastro-esophageal reflux disease without esophagitis; F17.290 Nicotine dependence, other tobacco product, uncomplicated; Z79.899 Other long term (current) drug therapy
CPT/HCPCS: 64718; J0690; J1170; J1885; J2250; J2405; J2704; J3010; J3490; J7120; 01710

== ENCOUNTER 2023-10-02 19:09 | Emergency (ER) | payer BC ==
[2023-10-02 19:23] VITALS: BP 139/86; PULSE 86
[2023-10-02] MEDS: Mupirocin Oint 22 GM Tube TOP ONE (20:23)
[2023-10-02] MEDS: Sulfamethoxazole/Trimethoprim 800-160 MG Tab PO ONE (20:24)
== END 2023-10-02 20:24 | disposition home or self-care (01) ==
LOC: JD.ED 19:09
DX: L73.9 Follicular disorder, unspecified (principal); F17.210 Nicotine dependence, cigarettes, uncomplicated; J45.909 Unspecified asthma, uncomplicated; Z79.899 Other long term (current) drug therapy; Z91.011 Allergy to milk products
CPT/HCPCS: 99282; A9270; 99283

== ENCOUNTER 2024-06-13 19:33 | Emergency (ER) | payer BC ==
[2024-06-13] MEDS: Ondansetron 4 MG/2 ML SDV IVPUSH ONE (20:55)
[2024-06-13] MEDS: Sodium Chloride 0.9% 1,000 ML IV ONE (20:55)
[2024-06-13] MEDS: Acetaminophen 325 MG Tab PO ONE (20:55)
[2024-06-13] MEDS: Piperacillin/Tazobactam 4.5 GM in Sodium Chloride 0.9% 100 ML IV ONE (20:57)
[2024-06-13 21:07] LABS: BASOPHILS ABSOLUTE AUTO 0.1 K/mm3 (0.0-0.2); BASOPHILS PERCENT AUTO 0.9 % (0.0-1.0); EOSINOPHILS ABSOLUTE AUTO 0.3 K/mm3 (0.0-0.4); EOSINOPHILS PERCENT AUTO 2.8 % (0.0-6.0); HEMATOCRIT 48.2 % (42.0-52.0); HEMOGLOBIN 16.5 gm/dl (14.0-18.0); IMMATURE GRAN ABSOLUTE AUTO 0.03 K/mm3 (0.00-0.05); IMMATURE GRAN PERCENT AUTO 0.3 % (0.0-0.4); LYMPHOCYTES ABSOLUTE AUTO 3.5 K/mm3 (1.0-4.8); LYMPHOCYTES PERCENT AUTO 31.5 % (24.0-44.0); MEAN CORPUSCULAR HEMOGLOBIN 28.1 pg (28.0-32.0); MEAN CORPUSCULAR HGB CONC 34.2 g/dl (32.0-36.0); MEAN CORPUSCULAR VOLUME 82.1 fl (83.0-99.0); MEAN PLATELET VOLUME 9.5 fl (9.4-12.4); MONOCYTES ABSOLUTE AUTO 0.7 K/mm3 (0.0-0.8); MONOCYTES PERCENT AUTO 6.4 % (0.0-8.0); NEUTROPHILS ABSOLUTE AUTO 6.5 K/mm3 (1.8-7.7); NEUTROPHILS PERCENT AUTO 58.1 % (41.0-71.0); PLATELET COUNT,PLT 278 K/mm3 (150-400); RED BLOOD CELL COUNT 5.87 M/mm3 (4.52-5.90); WHITE BLOOD CELL COUNT,WBC 11.17 K/mm3 (3.9-11.3)
[2024-06-13 21:08] LABS: APPEARANCE,URINE CLEAR (Clear); BILIRUBIN,URINE NEGATIVE (Negative); COLOR,URINE YELLOW (Yellow); GLUCOSE,URINE NEGATIVE (Negative); KETONES,URINE NEGATIVE (Negative); LEUKOCYTE ESTERASE,URINE NEGATIVE (Negative); NITRITE,URINE NEGATIVE (Negative); OCCULT BLOOD,URINE NEGATIVE (Negative); PH,URINE 7.5 (5.0-8.0); PROTEIN,URINE NEGATIVE (Negative); UROBILINOGEN,URINE 0.2 (0.2-1.0)
[2024-06-13 21:19] LABS: BARBITURATE SCREEN,URINE NEGATIVE (CUTOFF=200); BENZODIAZEPINES SCREEN,URINE NEGATIVE (CUTOFF=150); BUPRENORPHINE SCREEN,URINE NEGATIVE (CUTOFF=10); METHADONE SCREEN, URINE NEGATIVE (CUT0FF=200); METHAMPHETAMINES SCREEN, URINE NEGATIVE (CUTOFF=500); OXYCODONE SCREEN,URINE NEGATIVE (CUT0FF=100); THC SCREEN,URINE 20 NG/ML NEGATIVE (CUTOFF=50)
[2024-06-13] MEDS: Iopamidol 612 MG/ML 100 ML Bottle IVPUSH ONE (21:24)
[2024-06-13 21:25] LABS: AMPHETAMINES SCREEN, URINE NEGATIVE (CUTOFF=500)
[2024-06-13 21:29] LABS: A/G RATIO 1.1 (1-2); ALBUMIN 3.8 g/dl (3.4-5.0); ANION GAP 13.2 (5-15); BILIRUBIN TOTAL 0.4 mg/dL (0.2-1.0); BUN/CREATININE RATIO 10.8 (14-18); CALCIUM 9.3 mg/dL (8.5-10.1); CREATININE 1.2 mg/dL (0.7-1.3); EST CRCL DRUG DOSING (CG) 85.34 mL/min; PROTEIN TOTAL,TP 7.4 g/dl (6.4-8.2)
[2024-06-13 21:36] LABS: POTASSIUM,K 4.2 mEq/L (3.5-5.1)
[2024-06-13 23:25] VITALS: BP 130/86; PULSE 87
== END 2024-06-13 22:25 | disposition home or self-care (01) ==
LOC: JD.ED 19:33
DX: R10.31 Right lower quadrant pain (principal); R63.0 Anorexia; J45.909 Unspecified asthma, uncomplicated; F17.210 Nicotine dependence, cigarettes, uncomplicated; Z91.011 Allergy to milk products; Z79.51 Long term (current) use of inhaled steroids; Z79.899 Other long term (current) drug therapy
CPT/HCPCS: 36415; 74177; 80053; 80306; 81003; 82550; 83735; 85025; 87428; 96365; 96375; 99284; J2405; J2543; J7030; Q9967; 99283; A9270-GY

== ENCOUNTER 2024-06-24 23:32 | Emergency (ER) | payer BC ==
[2024-06-24 23:48] VITALS: BP 126/87; PULSE 74
[2024-06-25 00:24] LABS: BASOPHILS ABSOLUTE AUTO 0.1 K/mm3 (0.0-0.2); BASOPHILS PERCENT AUTO 1.1 % (0.0-1.0); EOSINOPHILS ABSOLUTE AUTO 0.3 K/mm3 (0.0-0.4); HEMATOCRIT 47.3 % (42.0-52.0); HEMOGLOBIN 16.1 gm/dl (14.0-18.0); IMMATURE GRAN ABSOLUTE AUTO 0.01 K/mm3 (0.00-0.05); IMMATURE GRAN PERCENT AUTO 0.1 % (0.0-0.4); LYMPHOCYTES ABSOLUTE AUTO 3.4 K/mm3 (1.0-4.8); LYMPHOCYTES PERCENT AUTO 44.7 % (24.0-44.0); MEAN CORPUSCULAR HEMOGLOBIN 28.6 pg (28.0-32.0); MEAN CORPUSCULAR VOLUME 84.2 fl (83.0-99.0); MEAN PLATELET VOLUME 9.7 fl (9.4-12.4); MONOCYTES ABSOLUTE AUTO 0.5 K/mm3 (0.0-0.8); MONOCYTES PERCENT AUTO 6.8 % (0.0-8.0); NEUTROPHILS ABSOLUTE AUTO 3.2 K/mm3 (1.8-7.7); NEUTROPHILS PERCENT AUTO 43.3 % (41.0-71.0); PLATELET COUNT,PLT 251 K/mm3 (150-400); RED BLOOD CELL COUNT 5.62 M/mm3 (4.52-5.90); WHITE BLOOD CELL COUNT,WBC 7.49 K/mm3 (3.9-11.3)
[2024-06-25 00:32] LABS: A/G RATIO 1.1 (1-2); ALBUMIN 3.5 g/dl (3.4-5.0); ANION GAP 10.7 (5-15); BILIRUBIN TOTAL 0.4 mg/dL (0.2-1.0); BUN/CREATININE RATIO 10.8 (14-18); CALCIUM 9.2 mg/dL (8.5-10.1); CREATININE 1.3 mg/dL (0.7-1.3); EST CRCL DRUG DOSING (CG) 78.77 mL/min; POTASSIUM,K 3.7 mEq/L (3.5-5.1); PROTEIN TOTAL,TP 6.8 g/dl (6.4-8.2)
[2024-06-25 00:35] LABS: LACTIC ACID 0.8 mmol/L (0.4-2.0)
[2024-06-25 00:47] LABS: APPEARANCE,URINE CLEAR (Clear); BILIRUBIN,URINE NEGATIVE (Negative); COLOR,URINE YELLOW (Yellow); GLUCOSE,URINE NEGATIVE (Negative); KETONES,URINE NEGATIVE (Negative); LEUKOCYTE ESTERASE,URINE NEGATIVE (Negative); NITRITE,URINE NEGATIVE (Negative); OCCULT BLOOD,URINE NEGATIVE (Negative); PROTEIN,URINE NEGATIVE (Negative); UROBILINOGEN,URINE 0.2 (0.2-1.0)
[2024-06-25] MEDS ORDERED: Sodium Chloride 0.9% 10 ML Syringe FLUSH PRN (01:06)
[2024-06-25] MEDS: Iopamidol 612 MG/ML 100 ML Bottle IVPUSH ONE (01:27)
[2024-06-25] MEDS: Sodium Chloride 0.9% 10 ML Syringe FLUSH PRN (01:27)
== END 2024-06-25 04:15 | disposition home or self-care (01) ==
LOC: JD.ED 23:32
DX: R10.31 Right lower quadrant pain (principal); J45.909 Unspecified asthma, uncomplicated; F17.210 Nicotine dependence, cigarettes, uncomplicated; Z91.011 Allergy to milk products; Z79.51 Long term (current) use of inhaled steroids; Z79.899 Other long term (current) drug therapy
CPT/HCPCS: 36415; 74177; 80053; 81003; 83605; 83690; 85025; 99284; Q9967